=== PATIENT | female | born 2000 | race Caucasian/White ===

== ENCOUNTER 2023-04-25 02:21 | Emergency (ER) | payer BC, SELFPAY ==
[2023-04-25 02:24] VITALS: BP 144/100
--- NOTE | 2023-04-25 02:44 | ED.GENMED ---
History of Present Illness
General
Chief Complaint: Throat Problem
Source: patient
Exam Limitations: none
Time Seen by Provider: 04/25/23 02:37
Nursing documentation reviewed up to this point in time: agreed with
Travel History
Have you had any contact with someone who has COVID-19?: No
Do you have any symptoms of coronavirus? Fever > 100 degrees, chills, cough, shortness of breath, sore throat, loss of taste or smell, muscle aches, or headache?: No
History of Present Illness
History of Present Illness:
This is a 23-year-old female who admits to being hung over today after having consumed a fair amount of alcohol the night prior. She complains of intermittent nausea and vomiting of clear liquids throughout the day today but was able to eat steak
and mac & cheese for lunch and then consumed a quesadilla for dinner around 7 PM. Tonight however after lying down to bed she felt a lump, discomfort in the back of her throat and was concerned for possible esophageal obstruction. She has been
sipping water without difficulty, denies difficulty swallowing. She has not had a coughing or shortness of breath. She denies abdominal pain, denies neck nor back pain and denies chest pain. No history of similar episodes in the past.
Currently admits to mild nausea but has been tolerating sips of water.
She denies risk of .
Past History
Past History
ED Past Medical History: Psychiatric (Anxiety/depression) and Other (Skull fracture with subdural hematoma at age 8)
ED Past Surgical History: Other (Rhinoplasty)
Social History
Tobacco: Non-smoker
Alcohol: Occasional
Drug: None
Personal: Single
Living: with family
Employment: Student
Family History
Family History: Other (Noncontributory)
Phy Exam
Physical Exam
Physical Exam:
GENERAL: 23-year-old female appears her stated age, bright and alert, pleasant, appears in no acute distress. Easily communicative. Speech is clear.
EYE: anicteric
NECK: Supple, nontender, no meningismus, no significant adenopathy.
ENT: posterior pharynx is clear, oral mucosa is moist. TM clear b/l, nares patent.
CARDIAC: Regular rate and rhythm. no murmur.
LUNGS: Clear breath sounds bilaterally, no acute respiratory distress, no wheezes/rales/rhonchi
ABDOMEN: Soft, nondistended, without focal tenderness, normoactive BS.
NEUROLOGICAL: Alert and oriented x3, no focal neuro deficits. Gait is bobby and steady.
SKIN: Warm and dry, normal color, skin intact. No rash.
MUSCULOSKELETAL: No C/C/E. peripheral pulses are full and equal b/l. No palpable tenderness.
PSYCH: Normal and appropriate interaction.
Course
Orders/Labs/Results
Orders:
Orders
04/25/23 02:44
Ondansetron Orally Disint [Zofran Odt (Orally Disintegrating)] 4 mg PO NOW STA
04/25/23 02:52
Mag Hydrox/Al Hydrox/Simeth [Maalox] 30 ml Phenobarb/Hyoscy/Atropine/Scop [] 10 ml PO NOW
Pantoprazole [Protonix] 40 mg PO NOW STA
04/25/23 03:01
Mag Hydrox/Al Hydrox/Simeth [Maalox] 30 ml .ROUTE .STK-MED ONE
Phenobarb/Hyoscy/Atropine/Scop [] 10 ml .ROUTE .STK-MED ONE
Vital Signs
Initial and Last Documented VS:
Initial Vital Signs
Temp Pulse Resp BP Pulse Ox
97.8 F 82 18 144/100 97
04/25/23 02:24 04/25/23 02:24 04/25/23 02:24 04/25/23 02:24 04/25/23 02:24
Last Documented Vital Signs
Temp Pulse Resp BP Pulse Ox
97.8 F 82 18 124/96 97
04/25/23 02:24 04/25/23 02:24 04/25/23 02:24 04/25/23 03:00 04/25/23 03:15
MDM/Problems Addressed
Differential Diagnosis Includes:
Patient presents with mild globus sensation after lying down to bed.
Overall exam is benign, posterior pharynx is clear, no difficulty swallowing.
She does admit to intermittent episodes of vomiting throughout the day which she attributes to significant alcohol consumption the night prior.
Overall appears euvolemic and vital signs are stable. Minimally elevated blood pressure initially which has normalized upon recheck.
I suspect globus sensation is acid reflux in nature attributed to episodes of vomiting. She reports no episodes of hematemesis, no coughing or shortness of breath.
Will give a dose of Zofran ODT for nausea and then trial a GI cocktail and oral dose of Protonix.
As patient overall appears well, exam is benign, no indication for laboratory studies nor radiologic studies.
*Pulse Oximetry
Patient hypoxic: no
*Critical Care Note
Total Time (30-74mins, 75-104mins- exclusive of procedures): Not Applicable
Update Note
Update Note:
04/25/2023 0338 AM
Patient feeling markedly improved, no further globus sensation and nausea has near resolved.
She has had no vomiting since arrival to the ED and is tolerating sips of water.
As above, I suspect acute globus sensation is acid reflux in nature, likely attributed to recent episodes of vomiting today which is likely due to alcohol consumption the night prior.
Overall exam remains benign, abdomen is soft and nontender.
Recommend she continue with clear liquids, avoid spicy or fried foods. May take [id number] Pepcid or omeprazole as needed.
Avoid further alcohol consumption at least over the next several days to week.
A prescription for Zofran has been provided for as needed nausea.
Follow-up with PCP for recheck as needed.
ED Attending Note
-
Portions of this chart may have been created with voice recognition software.� Occasional wrong word or��sound alike� substitutions may have occurred due to the inherent limitations of voice recognition software.
Discharge Plan
Departure
Patient Disposition: Home (Routine Discharge)
Date of Disposition: 04/25/23
Time of Disposition: 03:36
Patient with high blood pressure during this ER visit?: No
Condition: Good
Discharge Problem:
ACUTE GERD, Globus sensation
Instructions: Acid Reflux and GERD in Adults (DC)
Prescriptions:
New
ondansetron 4 mg tablet,disintegrating
4 mg PO QID PRN (Reason: nausea and vomiting) Qty: 20 0RF
Referrals:
Hermes Bee MD [Family Provider] - As needed
Interventions
Interventions:
*Risk Screen - Suicide Last Done: 04/25/23 02:24
*General Assessment Last Done: 04/25/23 02:48
*Neglect/Abuse Screening Last Done: 04/25/23 02:24
ED- Fall Risk Assessment Last Done: 04/25/23 02:44
*ED COVID-19 Vaccine History Last Done: 04/25/23 02:48
ED-EENT Assessment Last Done: 04/25/23 02:54
ED- Pulmonary Assessment Last Done: 04/25/23 02:54
[2023-04-25 02:48] VITALS: BMI 23.8
[2023-04-25] MEDS: ZOFRAN ODT (ORALLY DISINTEGRATING) 4 MG PO (02:50)
[2023-04-25 03:00] VITALS: BP 124/96
[2023-04-25] MEDS: PROTONIX 40 MG PO (03:03)
[2023-04-25] MEDS: MAALOX 40 PO (03:03)
== END 2023-04-25 03:40 | disposition home or self-care (01) ==
LOC: EMR 02:21
PROVIDERS: EMERGENCY PHYSICIAN Emergency Medicine; FAMILY PHYSICIAN Internal Medicine
DX: K21.9 Gastro-esophageal reflux disease without esophagitis (principal); R09.A2 Foreign body sensation, throat; R03.0 Elevated blood-pressure reading, without diagnosis of hypertension
CPT/HCPCS: 99283

== ENCOUNTER 2023-06-11 03:40 | Emergency (ER) | payer SELFPAY ==
[2023-06-11 03:56] VITALS: BP 134/91
[2023-06-11 04:19] VITALS: BMI 21.5
[2023-06-11 04:39] LABS: % Basophils 0.4 % (0-2); % Eosinophils 0.4 % (0-6); % Immature Granulocytes 0.3 % (0-0.5); % Lymphocytes 44.7 % (20.5-51.1); % Monocytes 8.7 % (1.7-9.3); % Neutrophils 45.5 % (42.2-75.2); Absolute Lymphocytes 3.2 10^3/uL (1.2-3.4); Absolute Monocytes 0.6 10^3/uL (0.1-0.6); Absolute Neutrophils 3.3 10^3/uL (1.4-6.5); Hemoglobin 13.7 g/dL (12.0-16.0); Mean Corp Hgb Conc. 36.1 g/dL (33.0-37.0); Mean Corpuscular Hgb 31.1 pg (27.0-31.0); Mean Corpuscular Volume 86.4 fL (81.0-99.0); Mean Platelet Volume 9.5 fL (7.4-10.4); Nucleated Red Blood Cells % 0 %; Platelet Count 357 10^3/uL (130-400); White Blood Cell Count 7.3 10^3/uL (4.8-10.8)
[2023-06-11 04:52] LABS: HCG, Serum Qualitative Screen Negative
[2023-06-11 04:55] LABS: Alcohol 271 mg/dl; Blood Urea Nitrogen 7 mg/dl (7-17); Calcium 8.9 mg/dl (8.4-10.2); Carbon Dioxide 24 mmol/L (22-30); Chloride 106 mmol/L (98-107); Estimated Creatinine Clearance 117 ml/min; Glucose 119 mg/dl (70-99); Potassium 3.9 mmol/L (3.5-5.1); Sodium 142 mmol/L (135-145); eGFR > 60.00
[2023-06-11 04:58] LABS: COVID-19 Antigen Negative (Negative)
--- NOTE | 2023-06-11 05:22 | ED.GENMED ---
History of Present Illness
<ATUL Pillai - Last Filed: 06/11/23 07:03>
General
Chief Complaint: Crisis Evaluation
Source: patient
Time Seen by Provider: 06/11/23 04:56
Travel History
Have you had any contact with someone who has COVID-19?: No
Do you have any symptoms of coronavirus? Fever > 100 degrees, chills, cough, shortness of breath, sore throat, loss of taste or smell, muscle aches, or headache?: No
History of Present Illness
History of Present Illness:
Pt is a 23 year old female presenting with suicidal ideation. She states she has had feelings of hurting herself since age 15 but tonight is the first time she had a plan to harm herself. She reports she had 4 cocktails while out with friends
yesterday evening, then came home and had an additional shot. She states that evening she developed a plan to harm herself and poured a bottle of OTC sleeping pills on the bed, telling her partner she was going to take them all. At that time her
partner called 911. She states she taken Cymbalta 60 mg for her anxiety and depression, and occasionally Nyquil cold and flew for sleeping assistance. Pt state last night was the first time she had drank in 2 weeks. She reports she has been trying
to decrease her drinking due to GI upset. She states prior to 2 weeks ago she was drinking approximately 3 shots every 3-4 days. She denies other drug use. She notes she does not have insurance coverage until June 19 and recently started a new job
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
Past History
<ATUL Pillai - Last Filed: 06/11/23 07:03>
Past History
ED Past Medical History: Psychiatric (Anxiety/depression) and Other (Skull fracture with subdural hematoma at age 8)
ED Past Surgical History: Other (Rhinoplasty)
Social History
Tobacco: Non-smoker
Alcohol: Occasional
Drug: None
Personal: Single
Living: with family
Employment: Student
Family History
Family History: Other (Noncontributory)
Review of Systems
<ATUL Pillai - Last Filed: 06/11/23 07:03>
Review of Systems
Constitutional: Reports no symptoms
EENT: Reports no symptoms
Respiratory: Reports no symptoms
Cardiac: Reports no symptoms
ABD/GI: Reports nausea
: Reports no symptoms
Musculoskeletal: Reports no symptoms
Skin: Reports no symptoms
Neurological: Reports no symptoms
Endocrine: Reports no symptoms
Hematologic/Lymphatic: Reports no symptoms
Psychiatric: Reports depression, anxiety and suicidal
Phy Exam
<ATUL Pillai - Last Filed: 06/11/23 07:03>
General Physical Exam
General Presentation: well appearing
General age: appears stated age
General Skin: warm and dry
General Habitus: normal
General Mental: appears intoxicated
Cardiovascular Exam
Cardiovascular Exam: regular rate/rhythm
Pulmonary Exam
Pulmonary Exam: lungs clear and no respiratory distress
Gastrointestinal Exam
Gastrointestinal Exam: non tender, soft and non distended
Mental
Mental Status: appears mod intoxicated
Skin Exam
Skin Exam: normal color
Psychiatric Exam
Psychiatric Exam: normal mood/affect and suicidal
Course
<ATUL Pillai - Last Filed: 06/11/23 07:03>
Orders/Labs/Results
Orders:
Orders
06/11/23 04:22
Test Result ONCE
06/11/23 04:26
Alcohol Urgent
Basic Metabolic Panel Urgent
Complete Blood Count/With Diff Urgent
HCG, Serum Qualitative Screen Urgent
06/11/23 04:30
COVID-19 Antigen Urgent
Source: Nasal Swab
06/11/23 05:04
Urine Drug Abuse Screen Urgent
Date Specimen was Collected: 06/11/23
Time Specimen was Collected: 04:22
06/11/23 05:21
Crisis Consult Urgent
Reason for Consult: suicidal thoughts
06/11/23 10:00
Alcohol Urgent
Abnormal Lab Results
06/11/23
04:26
MCH 31.1 H pg
(27.0-31.0)
Glucose 119 H mg/dl
(70-99)
06/11/23 04:26
06/11/23 04:26
Vital Signs
Initial and Last Documented VS:
Initial Vital Signs
Temp Pulse Resp BP Pulse Ox
98.4 F 131 24 134/91 95
06/11/23 03:56 06/11/23 03:56 06/11/23 03:56 06/11/23 03:56 06/11/23 03:56
Last Documented Vital Signs
Temp Pulse Resp BP Pulse Ox
98.4 F 131 24 134/91 95
06/11/23 03:56 06/11/23 03:56 06/11/23 03:56 06/11/23 03:56 06/11/23 03:56
<Mary Perdomo, DO - Last Filed: 06/11/23 07:53>
Orders/Labs/Results
Orders:
Orders
06/11/23 04:22
Test Result ONCE
06/11/23 04:26
Alcohol Urgent
Basic Metabolic Panel Urgent
Complete Blood Count/With Diff Urgent
HCG, Serum Qualitative Screen Urgent
06/11/23 04:30
COVID-19 Antigen Urgent
Source: Nasal Swab
06/11/23 05:04
Urine Drug Abuse Screen Urgent
Date Specimen was Collected: 06/11/23
Time Specimen was Collected: 04:22
06/11/23 05:21
Crisis Consult Urgent
Reason for Consult: suicidal thoughts
06/11/23 10:00
Alcohol Urgent
Abnormal Lab Results
06/11/23
04:26
MCH 31.1 H pg
(27.0-31.0)
Glucose 119 H mg/dl
(70-99)
06/11/23 04:26
06/11/23 04:26
Vital Signs
Initial and Last Documented VS:
Initial Vital Signs
Temp Pulse Resp BP Pulse Ox
98.4 F 131 24 134/91 95
06/11/23 03:56 06/11/23 03:56 06/11/23 03:56 06/11/23 03:56 06/11/23 03:56
Last Documented Vital Signs
Temp Pulse Resp BP Pulse Ox
98.4 F 131 24 134/91 95
06/11/23 03:56 06/11/23 03:56 06/11/23 03:56 06/11/23 03:56 06/11/23 03:56
<ATUL Pillai - Last Filed: 06/11/23 07:03>
*Pulse Oximetry
Patient hypoxic: no
*Critical Care Note
Total Time (30-74mins, 75-104mins- exclusive of procedures): Not Applicable
ED Attending Note
<ATUL Pillai - Last Filed: 06/11/23 07:03>
-
Portions of this chart may have been created with voice recognition software.� Occasional wrong word or��sound alike� substitutions may have occurred due to the inherent limitations of voice recognition software.
<Mary Perdomo DO - Last Filed: 06/11/23 07:53>
ED Attending Note
Patient seen and examined by attending physician: Yes
I performed the substantive portion of visit, reviewed & personally made and approve the management plan that is documented in note by myself or SELAM.: Yes
I performed a history and physical exam of patient and discussed management with resident, I reviewed resident's note and agree with documented findings and plan of care.: Yes
ED Attending Note:
This is a 23-year-old female who has longstanding history of anxiety, depression, maintained on Cymbalta daily. She admits to increased anxiety and depression symptoms more so over the past few weeks to months and tonight after she was out with
friends drinking alcohol anxiety and depression abruptly worsened and she had thoughts of suicide with plan to take an overdose of [id number] sleeping pills. She admits to dumping the pills on her bed but did not take any pills, her partner
witnessed this and called 911. She is somewhat remorseful for this action and although has had previous thoughts of hurting herself has never attempted suicide.
She does admit to moderate alcohol consumption generally 2-3 times per week but has discontinued alcohol over the past 2 weeks until tonight. She denies drug use.
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
She is agreeable to a crisis evaluation, agreeable and eager to receive help, treatment for her anxiety/depression.
GENERAL: 23-year-old female, thin build, appears her stated age, mildly drowsy but easily communicative. Intermittently tearful.
EYE: anicteric
NECK: Supple, nontender, no meningismus, no significant adenopathy.
ENT: oral mucosa is moist. No rhinorrhea.
CARDIAC: Regular rate and rhythm. no murmur.
LUNGS: Clear breath sounds bilaterally, no acute respiratory distress, no wheezes/rales/rhonchi
ABDOMEN: Soft, nondistended, without focal tenderness
NEUROLOGICAL: Alert and oriented x3, no focal neuro deficits.
SKIN: Warm and dry, normal color, skin intact. No rash.
MUSCULOSKELETAL: No C/C/E. peripheral pulses are full and equal b/l. No palpable tenderness.
PSYCH: Depressed mood, intermittently tearful. Admits to thoughts of suicide, had planned tonight to overdose on [id number]-clv-[id number] sleep aid but did not go through with her plan.
Patient remains cooperative and agreeable to crisis evaluation.
Appears mildly intoxicated, sleeps when undisturbed but easily arousable.
Labs are remarkable only for elevated alcohol level of 271. UDS is negative as expected.
Will continue to observe until sober and plan for crisis evaluation later this morning.
Discharge Plan
Departure
Patient Disposition: [facility]
Date of Disposition: 06/11/23
Time of Disposition: 07:46
Condition: Good
Discharge Problem:
major depression with suicidal thoughts, Acute alcohol intoxication
Prescriptions:
No Action
ondansetron 4 mg tablet,disintegrating
4 mg PO QID PRN (Reason: nausea and vomiting) Qty: 20 0RF
Interventions
Interventions:
*Risk Screen - Suicide Last Done: 06/11/23 03:56
*General Assessment Last Done: 06/11/23 03:56
*Neglect/Abuse Screening Last Done: 06/11/23 03:56
*ED COVID-19 Vaccine History Last Done: 06/11/23 04:19
ED-Psychological Assessment Last Done: 06/11/23 04:20
[2023-06-11 05:32] LABS: Amphetamines Negative (Negative); Barbiturates Negative (Negative); Benzodiazepines Negative (Negative); Buprenorphine Negative (Negative); Cocaine Negative (Negative); Marijuana Negative (Negative); Methadone Negative (Negative); Methamphetamines Negative (Negative); Opiates Negative (Negative); Phencyclidine Negative (Negative); Tricyclic Antidepressants Negative (Negative)
[2023-06-11 10:24] LABS: Alcohol 175 mg/dl
[2023-06-11] MEDS: TYLENOL 650 MG PO (15:47)
[2023-06-11 19:17] VITALS: BP 133/82
== END 2023-06-11 21:22 ==
LOC: EMR 03:40
PROVIDERS: EMERGENCY PHYSICIAN Emergency Medicine
DX: F32.A Depression, unspecified (principal); R45.851 Suicidal ideations; F10.129 Alcohol abuse with intoxication, unspecified; F41.8 Other specified anxiety disorders
CPT/HCPCS: 99283; 80048; 80306; 82077; 84703; 85025; 87811

== ENCOUNTER 2023-08-14 00:36 | Emergency (ER) | payer BC, SELFPAY ==
[2023-08-14 00:40] VITALS: BP 127/96
[2023-08-14 00:42] VITALS: BP 127/96
[2023-08-14 01:00] VITALS: BP 121/100
--- NOTE | 2023-08-14 01:11 | ED.GENMED ---
History of Present Illness
General
Chief Complaint: Alcohol Problem
Source: patient
Exam Limitations: none
Time Seen by Provider: 08/14/23 00:59
Travel History
Have you had any contact with someone who has COVID-19?: No
Do you have any symptoms of coronavirus? Fever > 100 degrees, chills, cough, shortness of breath, sore throat, loss of taste or smell, muscle aches, or headache?: No
History of Present Illness
History of Present Illness:
This is a 23 year old female that is brought in by EMS with intoxication. States that she was at the bar and just wanted to have a couple drinks with some friends. States that she has a lot of mental issues and she likes to sometimes lose herself.
States that she just had to many drinks. Denies any fever, chills, chest pain, SOB, abd pain, nausea, vomiting, diarrhea, headache, dizziness, urinary burning.
Past History
Past History
ED Past Medical History: Psychiatric (Anxiety/depression, PTSD, eating disorder) and Other (Skull fracture with subdural hematoma at age 8)
ED Past Surgical History: Other (Rhinoplasty)
Social History
Tobacco: Smoker
Alcohol: Occasional
Drug: None
Personal: Single
Living: with family
Employment: Student
Family History
Family History: Other (Noncontributory)
Review of Systems
Review of Systems
All Other Systems: ROS reviewed and negative except as documented in HPI and ROS
Constitutional: Reports no symptoms; Denies fever or chills
EENT: Reports no symptoms
Respiratory: Reports no symptoms; Denies cough or trouble breathing
Cardiac: Reports no symptoms; Denies chest pain
ABD/GI: Reports no symptoms; Denies abdominal pain, nausea, vomiting or diarrhea
: Reports no symptoms; Denies dysuria, frequency or urgency
Musculoskeletal: Reports no symptoms
Skin: Reports no symptoms
Neurological: Reports no symptoms; Denies dizzy or headache
Psychiatric: Reports no symptoms
Phy Exam
General Physical Exam
General Presentation: no apparent distress
General age: appears stated age
General Skin: warm and dry
General Habitus: normal
General Mental: appears intoxicated
General Hydration: appears well hydrated
ENT Exam
ENT Exam: TM's normal, pharynx normal and neck supple
Cardiovascular Exam
Cardiovascular Exam: regular rate/rhythm, no edema, no murmur and normal peripheral pulses
Pulmonary Exam
Pulmonary Exam: lungs clear, no respiratory distress, no rales, chest non tender, no crackles, no rhonchi, no wheezing and no cough
Gastrointestinal Exam
Gastrointestinal Exam: normal bowel sounds, non tender, soft, no organomegaly, no pulsatile mass and non distended
Musculoskeletal Exam
Musculoskeletal Exam: full ROM and no edema
Skin Exam
Skin Exam: normal color, warm/dry, no rash and no petechia
Psychiatric Exam
Psychiatric Exam: normal mood/affect
Scores
Withdrawal Assessment of Alcohol
Withdrawal Assessment Completed?: Not applicable
Course
Vital Signs
Initial and Last Documented VS:
Initial Vital Signs
Temp Pulse Resp BP Pulse Ox
97.9 F 88 20 127/96 99
08/14/23 00:40 08/14/23 00:40 08/14/23 00:40 08/14/23 00:40 08/14/23 00:40
Last Documented Vital Signs
Temp Pulse Resp BP Pulse Ox
97.9 F 88 20 127/96 99
08/14/23 00:40 08/14/23 00:40 08/14/23 00:40 08/14/23 00:40 08/14/23 00:40
MDM/Problems Addressed
Differential Diagnosis Includes:
Intoxication,
MDM/Problems Addressed:
This is a 23 year old female that comes in by EMS with Intoxication. States that she as just having a few drinks with friend and she had to many. States that she likes to lose herself sometimes and decreased her inhibitions.
Will watch patient and let her sleep until someone can pick her up as she is Intoxicated.
Chronic conditions affecting care: Psychiatric illness
Acute Exacerbation and/or Progression of Chronic Illness: Psychiatric illness
*Pulse Oximetry
Patient hypoxic: no
*EKG
Interpreted by ED Provider?: NA
Rate: EKG- N/A
*Food And Beverage Assistant Manager Interpretation
Rate: Food And Beverage Assistant Manager- N/A
*Critical Care Note
Total Time (30-74mins, 75-104mins- exclusive of procedures): Not Applicable
ED Attending Note
-
Portions of this chart may have been created with voice recognition software.� Occasional wrong word or��sound alike� substitutions may have occurred due to the inherent limitations of voice recognition software.
Discharge Plan
Departure
Patient Disposition: Home (Routine Discharge)
Date of Disposition: 08/14/23
Time of Disposition: 02:05
Patient with high blood pressure during this ER visit?: Yes
Condition: Good
Covid-19: Not Applicable
Discharge Problem:
Alcohol intoxication
Instructions: Alcohol Use Disorder (DC), BLOOD PRESSURE
Prescriptions:
No Action
ondansetron 4 mg tablet,disintegrating
4 mg PO QID PRN (Reason: nausea and vomiting) Qty: 20 0RF
Activity Restrictions/Additional Instructions:
As discussed, you have been seen in the Emergency room with alcohol intoxication. Please increase your water intake to 8-8oz glasses daily. You may also use Tylenol 650mg every 4 hours for any headache pain. Follow up with the family doctor as
needed. IF YOU HAVE ANY OTHER CONCERNS PLEASE RETURN TO THE EMERGENCY ROOM.
Interventions
Interventions:
*Risk Screen - Suicide Last Done: 08/14/23 00:40
*General Assessment Last Done: 08/14/23 00:40
*Neglect/Abuse Screening Last Done: 08/14/23 00:40
ED- Neurological Assessment Last Done: 08/14/23 00:52
ED-Psychological Assessment Last Done: 08/14/23 00:52
Discharge Date and Time
Print Language: BERMUDIAN
[2023-08-14 02:00] VITALS: BP 95/55
[2023-08-14 04:10] VITALS: BP 117/58
== END 2023-08-14 04:12 | disposition home or self-care (01) ==
LOC: EMR 00:36
PROVIDERS: EMERGENCY PHYSICIAN Emergency Medicine
DX: F10.129 Alcohol abuse with intoxication, unspecified (principal); F43.10 Post-traumatic stress disorder, unspecified; F41.9 Anxiety disorder, unspecified; F32.A Depression, unspecified; F50.9 Eating disorder, unspecified; F17.200 Nicotine dependence, unspecified, uncomplicated; Z88.0 Allergy status to penicillin
CPT/HCPCS: 99283

== ENCOUNTER 2023-08-19 15:40 | Emergency (ER) | payer BC, SELFPAY ==
[2023-08-19 15:53] VITALS: BP 149/101
[2023-08-19 17:55] LABS: % Basophils 0.4 % (0-2); % Immature Granulocytes 0.1 % (0-0.5); % Lymphocytes 23.5 % (20.5-51.1); % Monocytes 6.1 % (1.7-9.3); % Neutrophils 69.9 % (42.2-75.2); Absolute Lymphocytes 1.9 10^3/uL (1.2-3.4); Absolute Monocytes 0.5 10^3/uL (0.1-0.6); Absolute Neutrophils 5.5 10^3/uL (1.4-6.5); Hematocrit 41.2 % (37.0-47.0); Hemoglobin 14.4 g/dL (12.0-16.0); Mean Corpuscular Hgb 30.2 pg (27.0-31.0); Mean Corpuscular Volume 86.4 fL (81.0-99.0); Mean Platelet Volume 9.6 fL (7.4-10.4); Nucleated Red Blood Cells % 0 %; Platelet Count 356 10^3/uL (130-400); Red Blood Cell Count 4.77 10^6/uL (4.20-5.40); Red Cell Dist. Width 11.7 % (11.5-14.5); White Blood Cell Count 7.9 10^3/uL (4.8-10.8)
[2023-08-19 18:13] LABS: HCG, Serum Qualitative Screen Negative
[2023-08-19 18:14] LABS: ALT (SGPT) 25 U/L (0-35); AST (SGOT) 30 U/L (14-36); Alkaline Phosphatase 85 U/L (38-126); Blood Urea Nitrogen 6 mg/dl (7-17); Carbon Dioxide 22 mmol/L (22-30); Chloride 101 mmol/L (98-107); Glucose 105 mg/dl (70-99); Potassium 4.1 mmol/L (3.5-5.1); Sodium 137 mmol/L (135-145); Total Bilirubin 0.9 mg/dl (0.2-1.3); Total Protein 8.1 g/dl (6.3-8.2); eGFR > 60.00
[2023-08-19] MEDS: ATIVAN 1 MG PO (18:16)
[2023-08-19 19:29] LABS: Alcohol None Detected
--- NOTE | 2023-08-19 19:44 | ED.GENMED ---
History of Present Illness
General
Chief Complaint: Crisis Evaluation
Source: patient
Exam Limitations: none
Time Seen by Provider: 08/19/23 17:57
Nursing documentation reviewed up to this point in time: agreed with
Travel History
Have you had any contact with someone who has COVID-19?: No
Do you have any symptoms of coronavirus? Fever > 100 degrees, chills, cough, shortness of breath, sore throat, loss of taste or smell, muscle aches, or headache?: No
History of Present Illness
History of Present Illness:
Patient with history of depression on Cymbalta, presents to ED secondary to for medical evaluation after 302 petition was filed by her mother, secondary to concerns for patient's well-being with behavioral changes. Upon arrival, patient denies any
pain, but states that she is concerned that she may be '', but the fact that patient does admit to taking control pills every day. Otherwise, patient offers no additional complaints.
Past History
Past History
ED Past Medical History: Psychiatric (Anxiety/depression, PTSD, eating disorder) and Other (Skull fracture with subdural hematoma at age 8)
ED Past Surgical History: Other (Rhinoplasty)
Social History
Tobacco: Smoker
Alcohol: Occasional
Drug: None
Personal: Single
Living: with family
Employment: Student
Family History
Family History: Other (Noncontributory)
Review of Systems
Review of Systems
Allergies reviewed?: Yes
All Other Systems: ROS reviewed and negative except as documented in HPI and ROS
Constitutional: Reports no symptoms
Respiratory: Reports no symptoms
Cardiac: Reports no symptoms
ABD/GI: Reports no symptoms; Denies nausea or vomiting
Musculoskeletal: Reports no symptoms
Skin: Reports no symptoms
Neurological: Reports no symptoms
Phy Exam
Physical Exam
Physical Exam:
Physical Exam
General: no apparent distress, not acutely ill. afebrile.
Head: nc/at. eomi
Neck: supple. no meningeal signs.
Heart: s1/s2 regular rate and rhythm, no murmur. equal radial pulses.
Lungs: no acute respiratory distress. clear bilaterally
Abdomen: normal bowel sounds. not tender.
Neuro: alert and oriented. no focal neurological deficits
Skin: no rash
Psychiatric: well kept. interactive and cooperative, but with tangential thoughts and appears anxious. noted to be pacing around the room.
Extremities: no edema. no calf tenderness.
Course
Orders/Labs/Results
Orders:
Orders
08/19/23 17:09
Test Result ONCE
08/19/23 17:49
Alcohol Urgent
Complete Blood Count/With Diff Urgent
Comprehensive Metabolic Panel Urgent
HCG, Serum Qualitative Screen Urgent
08/19/23 18:14
Lorazepam [Ativan] 1 mg PO NOW STA
08/19/23 18:45
Crisis Consult Urgent
Reason for Consult: behavioral change
08/19/23 18:53
Add On- LAB Urgent
Tests Added?: ETOH
08/19/23 21:53
Urinalysis Reflex To Culture Urgent
Date Specimen was Collected: 08/19/23
Time Specimen was Collected: 17:09
08/19/23 21:54
Urine Drug Abuse Screen Urgent
Date Specimen was Collected: 08/19/23
Time Specimen was Collected: 18:53
08/19/23 23:25
Asenapine Sublingual [Saphris] 5 mg SL NOW STA
08/19/23 23:31
Haloperidol Lactate [Haldol] 5 mg IM NOW STA
Lorazepam [Ativan] 2 mg IM NOW STA
08/20/23 12:44
Fentanyl, Urine Urgent
Urine Microscopic Reflex Cult Urgent
Abnormal Lab Results
08/19/23 08/20/23
17:49 12:44
BUN 6 L mg/dl
(7-17)
Glucose 105 H mg/dl
(70-99)
Urine Ketones 2+ A
(Negative)
Ur Occult Blood Reflex 2+ A
(Negative)
Urine RBC 3-6 A /HPF
(0-2)
U Benzodiazepines Scrn Positive H
(Negative)
08/19/23 17:49
08/19/23 17:49
Vital Signs
Initial and Last Documented VS:
Initial Vital Signs
Temp Pulse Resp BP Pulse Ox
98.4 F 98 18 149/101 100
08/19/23 15:53 08/19/23 15:53 08/19/23 15:53 08/19/23 15:53 08/19/23 15:53
Last Documented Vital Signs
Temp Pulse Resp BP Pulse Ox
98.4 F 93 17 142/89 98
08/19/23 15:53 08/20/23 07:01 08/20/23 07:01 08/20/23 07:01 08/20/23 07:01
MDM/Problems Addressed
MDM/Problems Addressed:
Pt is medically cleared. 302 petition upheld by delegate. Pt will require transition to in-patient psychiatric facility for further evaluation and treatment.
*Critical Care Note
Total Time (30-74mins, 75-104mins- exclusive of procedures): Not Applicable
ED Attending Note
-
Portions of this chart may have been created with voice recognition software.� Occasional wrong word or��sound alike� substitutions may have occurred due to the inherent limitations of voice recognition software.
Discharge Plan
Departure
Patient Disposition: Psych Facility
Date of Disposition: 08/19/23
Time of Disposition: 19:48
Discharge Problem:
Behavioral change
Prescriptions:
No Action
ondansetron 4 mg tablet,disintegrating
4 mg PO QID PRN (Reason: nausea and vomiting) Qty: 20 0RF
Referrals:
UNKNOWN - PT DOES,NOT KNOW [Family Provider] -
Interventions
Interventions:
*Risk Screen - Suicide Last Done: 08/19/23 15:57
*General Assessment Last Done: 08/19/23 15:57
*Neglect/Abuse Screening Last Done: 08/19/23 15:57
*Nursing Disposition Last Done: 08/20/23 16:55
ED-Psychological Assessment Last Done: 08/20/23 03:46
Discharge Date and Time
Discharge Date/Time: 08/20/23 16:56
Print Language: HAITIAN
--- NOTE | 2023-08-19 23:25 | ED.CRISIS ---
ED Crisis Note
ED Crisis Note
Subjective:
Alerted by RN that pt become agitated, she is noted to be screaming at times, pressured speech, wandering in area. Saphris ordered.
[2023-08-19] MEDS: SAPHRIS 5 MG SL (23:50)
[2023-08-19] MEDS: ATIVAN 2 MG IM (23:57)
[2023-08-19] MEDS: HALDOL 5 MG IM (23:58)
[2023-08-20 07:01] VITALS: BP 142/89
[2023-08-20 12:58] LABS: Urine Albumin Negative (Neg - Trace); Urine Bilirubin Negative (Negative); Urine Character Clear (Clear); Urine Color Yellow; Urine Glucose Negative (Negative); Urine Ketone 2+ (Negative); Urine Leukocyte Negative (Negative); Urine Nitrite Negative (Negative); Urine Occult Blood 2+ (Negative); Urine Urobilinogen Negative (Neg - 1+)
[2023-08-20 13:11] LABS: Amphetamines Negative (Negative); Barbiturates Negative (Negative); Benzodiazepines Positive (Negative); Buprenorphine Negative (Negative); Cocaine Negative (Negative); Marijuana Negative (Negative); Methadone Negative (Negative); Methamphetamines Negative (Negative); Opiates Negative (Negative); Phencyclidine Negative (Negative); Tricyclic Antidepressants Negative (Negative)
[2023-08-20 13:25] LABS: Fentanyl, Urine Negative (Negative)
[2023-08-20 13:53] LABS: Urine White Cell 0-2 /HPF (0-5)
== END 2023-08-20 16:56 ==
LOC: EMR 15:40
PROVIDERS: EMERGENCY PHYSICIAN Emergency Medicine
DX: F41.9 Anxiety disorder, unspecified (principal); F32.A Depression, unspecified; F17.200 Nicotine dependence, unspecified, uncomplicated; F43.10 Post-traumatic stress disorder, unspecified; F50.9 Eating disorder, unspecified
CPT/HCPCS: 99283; 96372; 80053; 80306; 80307; 81003; 81015; 82077; 84703; 85025